=== PATIENT | female | born 1980 | race Caucasian/White ===

== ENCOUNTER → 2017-04-11 | Outpatient (CLI) | payer BC ==
[~2017-04-11] MED LIST: OXYC-360 PO; PREN0.01 PO
== END ==
LOC: HPND 09:43
PROVIDERS: ATTEND Obstetrics & Gynecology
DX: O09.521 Supervision of elderly multigravida, first trimester (principal); O34.211 Maternal care for low transverse scar from previous cesarean delivery; O09.211 Supervision of pregnancy with history of pre-term labor, first trimester
CPT/HCPCS: 36415; 76813

== ENCOUNTER → 2017-05-23 | Outpatient (CLI) | payer BC | LOC: HPND 08:45 | PROVIDERS: ATTEND Obstetrics & Gynecology | DX: O09.522 Supervision of elderly multigravida, second trimester (principal); O34.211 Maternal care for low transverse scar from previous cesarean delivery; O09.212 Supervision of pregnancy with history of pre-term labor, second trimester | CPT/HCPCS: 76811 ==

== ENCOUNTER → 2017-06-06 | Outpatient (CLI) | payer BC | LOC: HPND 10:28 | PROVIDERS: ATTEND Obstetrics & Gynecology | DX: O09.212 Supervision of pregnancy with history of pre-term labor, second trimester (principal); O09.522 Supervision of elderly multigravida, second trimester | CPT/HCPCS: 76815; 76817 ==

== ENCOUNTER → 2017-06-20 | Outpatient (CLI) | payer BC | LOC: HPND 09:09 | PROVIDERS: ATTEND Obstetrics & Gynecology | DX: O09.522 Supervision of elderly multigravida, second trimester (principal); O09.212 Supervision of pregnancy with history of pre-term labor, second trimester | CPT/HCPCS: 76816; 76817 ==

== ENCOUNTER → 2017-07-20 | Outpatient (CLI) | payer BC | LOC: HPND 09:48 | PROVIDERS: ATTEND Obstetrics & Gynecology | DX: O09.212 Supervision of pregnancy with history of pre-term labor, second trimester (principal); O09.522 Supervision of elderly multigravida, second trimester | CPT/HCPCS: 76816 ==

== ENCOUNTER 2017-09-05 18:24 | Emergency (ER) | payer BC ==
--- NOTE | 2017-09-05 19:35 | PD ---
HPI Chief Complaint Contractions Travel History International Travel<30 Days: No Contact w/Intl Traveler<30Days: No Known Affected Area: No History of Present Illness HPI 37-year-old , IUP at 34.1 care complicated by history of delivery 3, delivery 2 The patient presents complaining of irregular contractions since yesterday. She reports a small amount of leaking after she urinates. She reports that she is on weekly Bonilla. She reports that contractions started yesterday morning and decreased throughout the day until they were just sporadic. She reports this morning she felt some nausea and had some loose stool and then started having contractions anywhere between every 10 minutes and 1 hour. There were no aggravating or alleviating factors and no attempted treatments. However this afternoon she had 2 contractions that she had to breathe through. Due to her history she was concerned. She denies any leaking of fluid or vaginal bleeding. She reports good movement. Weeks Gestation: 34 Para: 3 : 4 History Past Medical History Medical History: Denies Significant Hx Obstetric History Obstetric History delivery 2 Full-term delivery 1 Past Surgical History Narrative Surgical delivery 3, breast augmentation Family History Family History: Negative Social History Alcohol Use: No Tobacco Use: No Substance Abuse: No Allergies-Medications (Allergen,Severity, Reaction): Coded Allergies: erythromycin base (Unverified Allergy, Mild, 12/26/16) Home Meds Reported Medications Oxycodone/Acetaminophen (Percocet) 5 Mg/325 Mg Tab, 1 - 2 TAB PO Q4HPRN, #50 FOR PAIN 12/31/09 Multivit/Min/Fol Ac/Iron/Pren ( Vit ( Plus)) Tab, 1 TAB PO DAILY 12/28/09 Review of Systems Except as stated in HPI: all other systems reviewed are Neg Physical Exam Narrative GENERAL: Well-nourished, well-developed patient. SKIN: Warm and dry. HEAD: Normocephalic and atraumatic. EYES: No scleral icterus. No injection or drainage. ENT: No nasal drainage noted. Mucous membranes pink. Airway patent. NECK: Supple, trachea midline. No JVD. CARDIOVASCULAR: Regular rate and rhythm without murmurs, gallops, or rubs. RESPIRATORY: Breath sounds equal bilaterally. No accessory muscle use. BREASTS: Deferred ABDOMEN/GI: Abdomen soft, non-tender, bowel sounds present, no rebound, no guarding Gravid GENITOURINARY: External Genitalia: intact and normal in appearance. Normal EGBUS. Grossly normal rugated. Physiologic discharge. No cervical or vaginal masses appreciated. SVE closed/50/-2. Uterine Contractions: Irregular pattern FHT's: heart tones are in the 140s with moderate long-term variability, good accelerations, and no decelerations noted. This is a reactive NST category 1 heart rate tracing. EXTREMITIES: No cyanosis or edema. BACK: Nontender without obvious deformity. NEUROLOGICAL: Awake and alert. Motor and sensory grossly within normal limits. Normal speech. Musculoskeletal: Grossly normal range of motion, gait, muscle strength Psychiatric: Grossly normal memory and affect MDM Plan Assessment/plan: 1. IUP at 34.1 2. contractions: No evidence of labor today with closed cervix and only irregular contractions on tocometry. However, patient has a strong history as 2 of her 3 previous deliveries were . She is on weekly Bonilla and due for her injection today. Strict labor precautions. Discussed with Dr. La, discussed potential benefit of betamethasone and Dr. La in agreement, first dose given and patient to follow up in 24 hours for repeat dose. 3. History of delivery 3 4. Breast augmentation 5. well-being: Reassuring testing with reactive NST and category 1 heart rate tracing. kick counts daily 6. Follow-up with Dr. La as scheduled or sooner if needed. Diagnosis Diagnosis: Primary Impression: 34 weeks gestation of Additional Impressions: Threatened premature labor affecting , less than 37 weeks in third trimester, antepartum False labor before 37 completed weeks of gestation during in third trimester, antepartum Disposition: 01 DISCHARGE HOME Condition: Italia Power MD Sep 05, 2017 19:35
[2017-09-05] MEDS ORDERED: BETAMETHASONE SOD PHOS/ACETATE SUSP 30 MG/5 ML VIAL IM SCH (19:45)
== END 2017-09-05 20:40 | disposition home or self-care (01) ==
LOC: HOBED 18:24
DX: O47.00 False labor before 37 completed weeks of gestation, unspecified trimester (principal); R11.0 Nausea; Z3A.37 37 weeks gestation of pregnancy
CPT/HCPCS: 59025; 84112; 99284; J0702

== ENCOUNTER → 2017-09-06 | Outpatient (CLI) | payer BC ==
[2017-09-06] MEDS: BETAMETHASONE SOD PHOS/ACETATE SUSP 30 MG/5 ML VIAL IM (21:18)
== END ==
LOC: HOBG 20:59
DX: O60.02 Preterm labor without delivery, second trimester (principal)
CPT/HCPCS: 84112; 96372

== ENCOUNTER 2017-09-24 22:18 | Emergency (ER) | payer BC ==
--- NOTE | 2017-09-24 23:08 | PD ---
HPI Chief Complaint Leaking fluid and mahesh Date Seen: September 24, 2017 Time Seen: 23:03 Travel History International Travel<30 Days: No Contact w/Intl Traveler<30Days: No Known Affected Area: No History of Present Illness HPI Patient is 37-year-old white female previous 3 at 36 weeks and 6 days and is a patient of Dr. Baltazar who presents complaining of leakage of fluid. Denies bleeding, she is mahesh irregularly and says she has been mahesh for days. Patient had intercourse this evening in the past some vaginal discharge that she thought was not semen but may have been. Her amnisure is negative 2, and on vaginal exam also done shows a closed high cervix and no fluid leakage noted on the glove or on exam vaginally Weeks Gestation: 36 Para: 3 : 4 History Obstetric History Obstetric History 3 C-sections Past Surgical History Narrative Surgical Social History Alcohol Use: No Tobacco Use: No Substance Abuse: No Allergies-Medications (Allergen,Severity, Reaction): Coded Allergies: erythromycin base (Unverified Allergy, Mild, 12/26/16) Home Meds Reported Medications Oxycodone/Acetaminophen (Percocet) 5 Mg/325 Mg Tab, 1 - 2 TAB PO Q4HPRN, #50 FOR PAIN 12/31/09 Multivit/Min/Fol Ac/Iron/Pren ( Vit ( Plus)) Tab, 1 TAB PO DAILY 12/28/09 Review of Systems General / Constitutional: No: Fever, Weight Gain, Chills, Other Eyes: No: Diploplia, Blurred Vision, Visual changes, Pain, Photophobia HENT: No: Headaches, Vertigo, Lightheadedness Cardiovascular: No: Irregular Rhythm, Chest Pain or Discomfort, Palpitations, Tachycardia, Syncope, Varicosities, Edema, Cyanosis Respiratory: No: Cough, Short of Breath, Other Gastrointestinal: Abdominal Pain, No: Nausea, Vomiting, Diarrhea Genitourinary: No: Decreased Urinary Output, Oliguria Musculoskeletal: No: Limited ROM, Weakness, Cramping, Edema, Pain Skin: No Rash, No Itching, No Dryness, No Lumps, No Change in Pigmentation, No Change in Nails, No Alopecia, No Lesions Neurologic: No: Weakness, Dizziness, Syncope, Focal Abnormalities, Coordination Problem, Headache, Slurred Speech, Seizures Psychiatric: No: Depression, Suicidal Ideations, Homicidal Ideation Endocrine: No: Heat Intolerance, Cold Intolerance, Polydipsia, Polyuria, Other Physical Exam Narrative GENERAL: Well-nourished, well-developed patient. SKIN: Warm and dry. HEAD: Normocephalic and atraumatic. EYES: No scleral icterus. No injection or drainage. ENT: No nasal drainage noted. Mucous membranes pink. Airway patent. NECK: Supple, trachea midline. No JVD. CARDIOVASCULAR: Regular rate and rhythm without murmurs, gallops, or rubs. RESPIRATORY: Breath sounds equal bilaterally. No accessory muscle use. BREASTS: Bilateral exam showed no masses , no retractions, no nipple discharge. ABDOMEN/GI: Abdomen soft, non-tender, bowel sounds present, no rebound, no guarding Gravid to [37-] weeks size Fundal Height: [37-] GENITOURINARY: External Genitalia: intact and normal in appearance BUS glands: [-] Cervix: [-post] Dilatation: [-0] Effacement: [0-] Station: [-3] Presentation: [vtx-] Membranes: [intact ] Uterine Contractions: [irreg-] FHT's: Category: [1-] Baseline: [133-] Reactive: [-R] Variability: [mod-] Decels: [0-] EXTREMITIES: No cyanosis or edema. BACK: Nontender without obvious deformity. No CVA tenderness. NEUROLOGICAL: Awake and alert. Motor and sensory grossly within normal limits. Five out of 5 muscle strength in all muscle groups. Normal speech. Data Data Labs amnisure neg times 2 MDM Interpretation(s) 37-year-old white female she for P3 previous 3 at 36-37 weeks who presented complaining of leakage of fluid. Amnisure is negative 2. No leakage of fluid noted on exam. Cervix is closed thick and high. Patient is mahesh irregularly when with discomfort but has shown no change her cervix. The NST is reactive Plan Plan to discharge home to observation return for increasing pain, bleeding, leakage of fluid. Otherwise see Dr. La as scheduled Diagnosis Diagnosis: Primary Impression: No leakage of amniotic fluid into vagina Additional Impressions: Previous section 36 weeks gestation of Disposition: DISCHARGE HOME Condition: Stable Greg Gilbert II, MD September 24, 2017 23:08
== END 2017-09-24 23:15 | disposition home or self-care (01) ==
LOC: HOBED 22:18
DX: O26.893 Other specified pregnancy related conditions, third trimester (principal); O34.219 Maternal care for unspecified type scar from previous cesarean delivery; O09.523 Supervision of elderly multigravida, third trimester; Z3A.36 36 weeks gestation of pregnancy
CPT/HCPCS: 59025; 84112

== ENCOUNTER 2017-09-25 16:00 | Emergency (ER) | payer BC ==
--- NOTE | 2017-09-25 16:44 | PD ---
HPI Chief Complaint Leaking fluid Date Seen: September 25, 2017 Time Seen: 16:39 Travel History International Travel<30 Days: No Contact w/Intl Traveler<30Days: No Known Affected Area: No History of Present Illness HPI 37-year-old who is at 37 weeks gestation complains of leaking fluid. Patient had coitus yesterday and came in after feeling like she had a "" gush of fluid '. Amnio sure at that time was done twice and both were negative but patient states that today she felt a little bit more fluid coming out vaginally and she has a history of oligohydramnios in the past and she became concerned again. Patient states that she also felt a little piece of tissue at the introitus of the vagina that she was concerned about. Otherwise she has normal movements and occasional contractions but irregular. Patient has a C- section scheduled for 39 weeks and otherwise has had an uncomplicated antepartum course. Patient was on Concetta this due to a history of a 35 week delivery. Weeks Gestation: 37 Para: 3 : 4 History Past Medical History Medical History: Denies Significant Hx Obstetric History Obstetric History 3 Family History Family History: Negative Social History Alcohol Use: No Tobacco Use: No Substance Abuse: No Allergies-Medications (Allergen,Severity, Reaction): Coded Allergies: erythromycin base (Unverified Allergy, Mild, 12/26/16) Home Meds Reported Medications Oxycodone/Acetaminophen (Percocet) 5 Mg/325 Mg Tab, 1 - 2 TAB PO Q4HPRN, #50 FOR PAIN 12/31/09 Multivit/Min/Fol Ac/Iron/Pren ( Vit ( Plus)) Tab, 1 TAB PO DAILY 12/28/09 Review of Systems Except as stated in HPI: all other systems reviewed are Neg Physical Exam Narrative GENERAL: Well-nourished, well-developed patient. SKIN: Warm and dry. HEAD: Normocephalic and atraumatic. EYES: No scleral icterus. No injection or drainage. ENT: No nasal drainage noted. Mucous membranes pink. Airway patent. NECK: Supple, trachea midline. No JVD. CARDIOVASCULAR: Regular rate and rhythm without murmurs, gallops, or rubs. RESPIRATORY: Breath sounds equal bilaterally. No accessory muscle use. ABDOMEN/GI: Abdomen soft, non-tender, bowel sounds present, no rebound, no guarding Gravid to [-38] weeks size Fundal Height: [-] GENITOURINARY: External Genitalia: intact and normal in appearance. Small cystocele is seen on exam with the speculum. Some physiologic discharge is noted with some congestion in the mucosal tissue but otherwise no fluid is seen BUS glands: [-] Normal Cervix: [-] 1 Dilatation: [-] Long Effacement: [-] High Station: [-] Presentation: [-] Vertex Membranes: [intact or ruptured] intact with negative amateur Uterine Contractions: [-] Occasional irregular FHT's: Category: [-] 1 Baseline: [-] 140 Reactive: [-] Moderate Variability: [-] Moderate Decels: [-] Absent EXTREMITIES: No cyanosis or edema. BACK: Nontender without obvious deformity. No CVA tenderness. NEUROLOGICAL: Awake and alert. Motor and sensory grossly within normal limits. Five out of 5 muscle strength in all muscle groups. Normal speech. Bedside ultrasound performed with an amniotic fluid index of 12.6 Data Data Vital Signs Reviewed: Yes [facility] Medical Record Reviewed: Yes Plan 37-year-old with physiologic cyst discharge and a small cystocele noted on examination Amnisure was negative and no other findings of loss of fluid Normal amniotic fluid index patient has been reassured and will follow up with Dr. La as scheduled Diagnosis Diagnosis: Primary Impression: 37 weeks gestation of Additional Impressions: Intact amniotic membranes during in third trimester Cystocele affecting in third trimester Previous section complicating , antepartum condition or complication Disposition: 01 DISCHARGE HOME Viri Mazariegos MD September 25, 2017 16:44
== END 2017-09-25 17:13 | disposition home or self-care (01) ==
LOC: HOBED 16:00
DX: O34.83 Maternal care for other abnormalities of pelvic organs, third trimester (principal); N81.10 Cystocele, unspecified; O34.219 Maternal care for unspecified type scar from previous cesarean delivery; Z3A.37 37 weeks gestation of pregnancy
CPT/HCPCS: 59025; 76815; 84112

== ENCOUNTER 2017-10-02 19:12 | Inpatient (IN) | payer BC ==
[~2017-10-02] VITALS: Ht 152.4 cm; Wt 60.0 kg
[2017-10-02] MEDS: LACTATED RINGER'S 1000 ML INJ 1,000 ML IV SCH (13:04)
[2017-10-02] MEDS ORDERED: PRENTAB7 (20:15)
[2017-10-02] MEDS ORDERED: ACETAMINOPHEN 1000 MG/100 ML 100 ML IV ONE (20:30)
[2017-10-02] MEDS ORDERED: diphenhydrAMINE HCL 50 MG/ML VIAL ONE (20:30)
[2017-10-02] MEDS ORDERED: MORPHINE SULFATE PF 5 MG/10 ML VIAL ONE (20:30)
[2017-10-02] MEDS ORDERED: ceFAZolin 1,000 MG/NS 100 ML IV SCH ×2 (20:45)
[2017-10-02] MEDS ORDERED: LACTATED RINGER'S 1000 ML IV SCH (20:45)
[2017-10-02] MEDS ORDERED: LACTATED RINGER'S 1000 ML IV ONE (20:45)
[2017-10-02] MEDS ORDERED: CITRIC ACID-SODIUM CITRATE LIQ 30 ML UDC PO SCH (20:45)
[2017-10-02 20:47] LABS: AUTOMATED NEUTROPHIL # 5.9 TH/MM3 (1.8-7.7); BASOPHIL % 0.3 % (0.0-2.0); EOSINOPHIL # 0.1 TH/MM3 (0-0.4); HEMOGLOBIN 12.1 GM/DL (11.6-15.3); LYMPHOCYTE # 1.6 TH/MM3 (1.0-4.8); MEAN CORPUSCULAR HEMOGLOBIN 30.3 PG (27.0-34.0); MEAN CORPUSCULAR HGB CONC 33.7 % (32.0-36.0); MEAN PLATELET VOLUME 8.9 FL (7.0-11.0); MONOCYTE # 0.5 TH/MM3 (0-0.9); NEUT % 72.7 % (16.0-70.0); PLATELET COUNT 256 TH/MM3 (150-450); RED CELL DISTRIBUTION WIDTH 12.8 % (11.6-17.2); WHITE BLOOD COUNT 8.2 TH/MM3 (4.0-11.0)
[2017-10-02 21:04] LABS: BACTERIA, URINE MOD /hpf; BILIRUBIN, URINE NEG (NEG); BLOOD, URINE NEG (NEG); GLUCOSE,URINE NEG (NEG); KETONE, URINE NEG (NEG); NITRITE,URINE NEG (NEG); SQUAMOUS EPITHELIAL CELL URINE <1 /hpf (0-5); URINE COLOR LIGHT-YELLOW (YELLW/STRAW); URINE LEUKOCYTE ESTERASE NEG (NEG)
[2017-10-02] MEDS ORDERED: MEASLES, MUMPS, RUBELLA VACCINE 0.5 ML VIAL SQ ONE (21:15)
[2017-10-02] MEDS ORDERED: oxyCODONE/ACETAMINOPHEN 5 MG/325 MG TAB PO PRN (21:15)
[2017-10-02] MEDS ORDERED: KETOROLAC TROMETHAMINE 60 MG/2 ML (IM) VIAL IM PRN (21:15)
[2017-10-02] MEDS ORDERED: OXYTOCIN 30 UNITS-500ML PREMIX 500 ML IV ONE (21:15)
[2017-10-02] MEDS ORDERED: ZOLPIDEM TARTRATE 5 MG TAB PO PRN (21:15)
--- NOTE | 2017-10-02 21:19 | MH ---
cc: Ranjit La MD, John A MD DATE OF ADMISSION: 10/02/2017 ADMITTING DIAGNOSIS: 1. at 38 weeks 2. Early labor. 3. Previous section x3. 4. Multiparity. HISTORY OF PRESENT ILLNESS: The patient is a 37-year-old white female, para 1-2-0-3 with an LMP of 01/09/2017, EDC of 10/16/2017. Her course has been benign. Her history is notable for a first at term 38 weeks for failure to progress OP. Then, she had a second delivery in 2004 at 34-35 weeks for pre ROM and in 2009 for labor fluid for low fluid delivery. She has been maintained on Concetta this until 36 weeks. She had normal panorama. Normal first TM screen and normal second TMJ screen. PAST SURGICAL HISTORY: Breast augmentation. ALLERGIES: ERYTHROMYCIN. TRANSFUSIONS: None. SOCIAL HISTORY: She is , employed. alcohol, tobacco and drugs are none. FAMILY HISTORY: Noncontributory. PHYSICAL EXAMINATION: GENERAL: A well-nourished, well-developed, gravid female. HEENT: Normal. CHEST: Clear HEART: Regular rate. BREASTS: Symmetrical. ABDOMEN: Gravid, EFW 3000 grams. Cervix closed. EXTREMITIES: Normal. ASSESSMENT: As above. PLAN: She is now admitted for repeat section and bilateral tubal interruption. The procedures, the risks, benefits, complications including infection, injury and bleeding explained and accepted. MD VANESSA Bright/ , 08:59 PM , 09:19 PM
[2017-10-02] MEDS ORDERED: fentaNYL CITRATE 250 MCG/5 ML AMP ONE (21:28)
[2017-10-02] MEDS ORDERED: ONDANSETRON ODT 4 MG TAB PO PRN (21:45)
[2017-10-02] MEDS ORDERED: EPIDURAL-DIPHENHYDRAMINE HCL 50 MG/ML VIAL IV PUSH PRN (23:45)
[2017-10-02] MEDS ORDERED: EPIDURAL-DIPHENHYDRAMINE HCL 50 MG CAP PO PRN (23:45)
[2017-10-02] MEDS ORDERED: HYDROmorphone HCL PF 0.5 MG/0.5 ML SYRINGE IV PRN (23:45)
[2017-10-02] MEDS ORDERED: EPIDURAL-DO NOT ADMINISTER ANTICOAGULANTS PRN (23:45)
[2017-10-02] MEDS ORDERED: EPIDURAL-NO SYSTEMIC NARCOTICS PRN (23:45)
[2017-10-02] MEDS ORDERED: EPIDURAL-NALOXONE HCL 0.4 MG/ML AMP IV PUSH PRN (23:45)
--- NOTE | 2017-10-03 01:01 | MP ---
cc: Ranjit La MD DATE OF OPERATION: 10/02/2017 PREOPERATIVE DIAGNOSES: 1. at 38 weeks with early labor. 2. Previous section x 3. 3. Multiparity. POSTOPERATIVE DIAGNOSES: 1. at 38 weeks with early labor. 2. Previous section x 3. 3. Multiparity. 4. Delivered. PROCEDURE PERFORMED: Repeat low transverse section and bilateral tubal interruption. ANESTHESIA: Spinal. SURGEON: Ranjit La MD HOUSEKEEPER HEAD: GEORGE Brennan ESTIMATED BLOOD LOSS: 500 mL FLUIDS: 2.2 liters crystalloid. FINDINGS: Following induction of adequate spinal anesthesia, the patient was prepped and draped supine on the operating table in left lateral tilt position, usual sterile fashion, with the bladder being drained with Richey catheterization. The abdomen was opened through a Pfannenstiel incision using a knife to excise her old scar. The fascia opened transversely, stripped from the muscles. The peritoneum was opened high, with a history of adhesions between the bladder and abdominal wall. These were found and were sharply dissected free. When well clear of the lower segment, the lower segment was incised transversely with a knife, extended with blunt dissection. Membranes revealed clear fluid. Baby in LOT position. The vacuum extractor applied to the occiput. Head gently lifted, the head delivered through the wound. Mouth suctioned, cord clamped and cut and the baby passed to awaiting team. Viable, vigorous female. Apgars were 9 and 9, weight 7 pounds 8.5 ounces, female. Cord blood collected for typing, the placenta for donation and the uterine cavity cleaned with laps. Uterus exteriorized and closed in 2 layers running suture, first with a running locking stitch of 0-Vicryl, second with a running imbricating stitch of 0-Vicryl. sutures of 3-0 chromic were used for hemostasis. The uterine wound packed with a lap. The patient reaffirmed her desire for tubal. The left fallopian tube was traced to the fimbriated end. A window made in mesosalpinx of the fimbria. The vascular pedicle of fimbria was clamped with 2 Kellys and the distal tube with a hemostat. The distal tube and fimbria excised with scissors for permanent study. The fimbrial pedicle was then ligated with 2 free ties of 2-0 chromic. The proximal tube was ligated with 2-0 chromic and buried Renny fashion. A second suture placed to secure the tube of the fundus and the same on the right. Posterior inspection was normal. The uterus replaced in the cavity, irrigation performed and the raw lower segment surfaces and the bladder flap were coated with Manuel and Interceed. The peritoneum was now closed with a running stitch of 2-0 Vicryl. All laps and retractors were removed at that time. Irrigation performed. The fascia closed with a running locking stitch of 0 Vicryl, corner to midline tied with the muscles being dusted with Manuel prior to the closure of the fascia. Subcutaneous was irrigated and closed with running 3-0 Vicryl and the skin with a running subcuticular 3-0 Monocryl and Dermabond applied. All counts were correct and the patient was awakened and taken to the recovery in good condition. MD VANESSA Bright/TIFFANY/zuri , 10:21 PM , 11:15 PM RALPH
[2017-10-03] MEDS: ACETAMINOPHEN 1000 MG/100 ML VIAL IV SCH ×2 (05:03→13:02)
[2017-10-03] MEDS: LACTATED RINGER'S 1000 ML INJ 1,000 ML IV SCH (05:09)
[2017-10-03 05:59] LABS: AUTOMATED NEUTROPHIL # 6.3 TH/MM3 (1.8-7.7); BASOPHIL % 0.3 % (0.0-2.0); EOSINOPHIL % 0.6 % (0.0-4.0); HEMATOCRIT 30.9 % (35.0-46.0); HEMOGLOBIN 10.7 GM/DL (11.6-15.3); LYMPH % 18.5 % (9.0-44.0); LYMPHOCYTE # 1.6 TH/MM3 (1.0-4.8); MEAN CORPUSCULAR HGB CONC 34.5 % (32.0-36.0); MEAN PLATELET VOLUME 8.7 FL (7.0-11.0); MONO % 7.8 % (0.0-8.0); MONOCYTE # 0.7 TH/MM3 (0-0.9); NEUT % 72.8 % (16.0-70.0); PLATELET COUNT 198 TH/MM3 (150-450); RED BLOOD COUNT 3.43 MIL/MM3 (4.00-5.30); RED CELL DISTRIBUTION WIDTH 12.9 % (11.6-17.2); WHITE BLOOD COUNT 8.7 TH/MM3 (4.0-11.0)
[2017-10-03 06:22] LABS: BICARBONATE 24.4 MEQ/L (21.0-32.0); CALCIUM 7.8 MG/DL (8.5-10.1); CREATININE 0.53 MG/DL (0.50-1.00)
[2017-10-03] MEDS: KETOROLAC TROMETHAMINE 30 MG/ML (IVP) VIAL IV PUSH PRN ×2 (08:33→21:04)
[2017-10-03] MEDS: DOCUSATE SODIUM 50 MG/SENNA 8.6 MG TAB PO PRN ×2 (08:33→20:53)
[2017-10-03] MEDS: SIMETHICONE 80 MG CHEWABLE TAB PO PRN ×2 (13:00→20:53)
[2017-10-03] MEDS: oxyCODONE/ACETAMINOPHEN 5 MG/325 MG TAB PO PRN ×3 (14:43→23:00)
[2017-10-03 20:43] VITALS: BP 95/61; PULSE 93; RESP 18; TEMP 99.6
[2017-10-04] MEDS: SIMETHICONE 80 MG CHEWABLE TAB PO PRN ×2 (03:57→20:25)
[2017-10-04] MEDS: oxyCODONE/ACETAMINOPHEN 5 MG/325 MG TAB PO PRN ×3 (03:57→20:18)
[2017-10-04] MEDS: IBUPROFEN 600 MG TAB PO PRN ×3 (08:14→20:18)
[2017-10-04] MEDS ORDERED: DIPHTH/TETANUS/ACEL PERTUSSIS (BOOSTER) 0.5 ML VIAL/PFS IM ONE (09:00)
[2017-10-04] MEDS: DOCUSATE SODIUM 50 MG/SENNA 8.6 MG TAB PO PRN ×2 (10:32→20:25)
[2017-10-04 20:34] VITALS: BP 106/66; PULSE 82; RESP 18; TEMP 98
[2017-10-05] MEDS: oxyCODONE/ACETAMINOPHEN 5 MG/325 MG TAB PO PRN ×4 (00:28→11:59)
[2017-10-05] MEDS: SIMETHICONE 80 MG CHEWABLE TAB PO PRN (02:21)
[2017-10-05] MEDS: IBUPROFEN 600 MG TAB PO PRN ×2 (02:21→08:27)
[2017-10-05 04:04] VITALS: BP 99/72; PULSE 76; RESP 18; TEMP 97.7
--- NOTE | 2017-10-05 07:25 | HHI.OB ---
Subjective Post Day: 3 Remarks doing well dc home today Objective Vitals/I&O Vital Signs Date Time Temp Pulse Resp B/P (MAP) Pulse Ox O2 Delivery O2 Flow Rate FiO2 10/05/17 04:04 97.7 76 18 99/72 (81) 10/04/17 20:34 98.0 82 18 106/66 (79) 10/04/17 14:19 16 10/04/17 10:30 16 10/04/17 10:30 16 Objective Remarks GENERAL: Well-nourished, well-developed patient. ABDOMEN/GI: Abdomen soft, non-tender. Fundus: Firm, non-tender at umbilicus. GENITOURINARY: Light to moderate bleeding. EXTREMITIES: No cyanosis or edema, non-tender, without signs of DVT. Medications and IVs Current Medications Medications (Trade) Dose Ordered Sig/Jessie Route Start Time Stop Time Status Last Admin Lactated Ringer's 1,000 ml @ 150 mls/hr Q6H40M IV 10/02/17 20:45 (Bicitra Liq) 30 ml RECLAMATION SUPERVISOR PO 10/02/17 20:45 10/05/17 20:44 Cefazolin Sodium 1000 mg/Sodium Chloride 100 ml @ 200 mls/hr RECLAMATION SUPERVISOR IV 10/02/17 20:45 10/05/17 20:44 (Mylicon Chew) 80 mg QID PRN PO 10/02/17 21:15 10/05/17 02:21 (Motrin) 600 mg Q6H PRN PO 10/02/17 21:15 10/05/17 02:21 (Percocet 5-325 Mg) 1 tab Q4H PRN PO 10/02/17 21:15 10/05/17 03:51 (Percocet 5-325 Mg) 2 tab Q4H PRN PO 10/02/17 21:15 10/04/17 08:14 (Eileen-Colace) 2 tab Q12H PRN PO 10/02/17 21:15 10/04/17 20:25 (Ambien) 5 mg HS PRN PO 10/02/17 21:15 (Zofran Odt) 4 mg Q6H PRN PO 10/02/17 21:45 (Toradol Inj) 30 mg Q6H PRN IV PUSH 10/02/17 21:15 10/05/17 21:00 10/03/17 21:04 (Dilaudid Pf Inj) 0.5 mg UNSCH PRN IV 10/02/17 23:45 10/03/17 03:31 Assessment/Plan Problem List: (1) Encounter for female sterilization procedure ICD Codes: Z30.2 - Encounter for sterilization (2) delivery delivered ICD Codes: O82 - Encounter for delivery without indication Discharge Planning dc today Ranjit Faustin MD October 05, 2017 07:25
[2017-10-05] MEDS ORDERED: OXYC1TAB63 PO (07:27)
--- NOTE | 2017-10-05 07:28 | HHI.DCPOC ---
Discharge Care Plan Diagnosis: (1) delivery delivered (2) Encounter for female sterilization procedure Report Symptoms to Your Doctor -Temperature above 100.5 degrees -Redness, of incision or excessive or foul smelling drainage -Unusual pain or calf pain -Increased vaginal bleeding -Painful or difficulty urinating -Feelings of extreme sadness or anxiety after 2 weeks Goals to Promote Your Health * To prevent worsening of your condition and complications * To maintain your health at the optimal level Directions to Meet Your Goals Take your medications as prescribed Follow your dietary instruction Follow activity as directed Ensure plenty of rest for recovery Drink fluids for hydration Keep your appointments as scheduled Take your immunizations and boosters as scheduled If your symptoms worsen call your PCP, if no PCP go to Urgent Care Center or Emergency Room Smoking is Dangerous to Your Health. Avoid second hand smoke Call the 24-hour crisis hotline for domestic abuse at Ranjit Faustin MD October 05, 2017 07:27
--- NOTE | 2017-10-05 07:30 | HHI.DS ---
Admission Date October 02, 2017 at 20:01 Discharge Date: October 05, 2017 Admitting Diagnosis Diagnosis: (1) delivery delivered Diagnosis: Principal ICD Codes: O82 - Encounter for delivery without indication (2) Encounter for female sterilization procedure Diagnosis: Principal ICD Codes: Z30.2 - Encounter for sterilization : Repeat (with BTL) Brief History 37 yo for repeat CS Hospital Course Repeat CS 10/02/2017 by Ranjit La with BTL Pt Condition on Discharge: Good Discharge Disposition: Discharge Home Discharge Instructions Diet Instructions: As Tolerated, No Restrictions Activities You Can Perform: Pelvic Rest Activities to Avoid: Driving for 24 hrs Follow up Referrals: [facility] - 2 Weeks @ [facility] with Ranjit La MD New Medications: Oxycodone HCl/Acetaminophen (Oxycodone-Acetaminophen 5-325) 5 Mg-325 Mg Tablet 1 TAB PO Q4H PRN for PAIN SCALE 1 TO 4, #30 TAB Continued Medications: Pnv No.95/Ferrous Fum/Folic AC ( Vitamins Tablet) 28 Mg Iron-800 Mcg Tablet Ranjit Faustin MD October 05, 2017 07:29
[2017-10-05] MEDS: DOCUSATE SODIUM 50 MG/SENNA 8.6 MG TAB PO PRN (11:58)
== END 2017-10-05 12:15 | disposition home or self-care (01) | DRG 766 ==
LOC: HOBED 19:12 → H2EB 20:01 → H1EA 23:32
PROVIDERS: ADMIT Obstetrics & Gynecology; ATTEND Obstetrics & Gynecology
PROC: 10D00Z1 Extraction of Products of Conception, Low, Open Approach (ICD-10-PCS; principal; 2017-10-02)
PROC: 0UL70ZZ Occlusion of Bilateral Fallopian Tubes, Open Approach (ICD-10-PCS; 2017-10-02)
PROC: 3E0R3BZ Introduction of Anesthetic Agent into Spinal Canal, Percutaneous Approach (ICD-10-PCS; 2017-10-02)
DX: O34.211 Maternal care for low transverse scar from previous cesarean delivery (principal); N85.8 Other specified noninflammatory disorders of uterus; O09.43 Supervision of pregnancy with grand multiparity, third trimester; Z3A.38 38 weeks gestation of pregnancy; Z37.0 Single live birth
CPT/HCPCS: 80048; 80307; 81001; 85025; 86850; 86900; 86901; 87086; 88302; 90715; 99283; C1765; J0131; J0690; J1170; J1200; J1885; J2274; J2590; J3010; J7120